=== PATIENT | male | born 1945 | race Caucasian/White ===

== ENCOUNTER 2017-09-12 04:04 | Observation (INO) ==
[2017-09-12] MEDS ORDERED: 0.9 % Sodium Chloride 1,000 ML IVC ONE (04:47)
[2017-09-12] MEDS ORDERED: Ipratropium/Albuterol Neb 3 ML IH ONE (04:51)
[2017-09-12] MEDS ORDERED: methylPREDNISolone 125 MG/2 ML VIAL IVP ONE (04:53)
--- NOTE | 2017-09-12 04:55 | Emergency Department Note ---
Disposition Clinical Impression: Influenza A, Hypokalemia COPD (chronic obstructive pulmonary disease) Qualifiers: COPD type: unspecified COPD Qualified Code(s): J44.9 - Chronic obstructive pulmonary disease, unspecified Disposition: Admitted As Inpatient Condition: Fair Time of Disposition: 06:02 General Adult HPI - General Chief complaint: ED Shortness of Breath/Dyspnea Stated complaint: cough,fever Time Seen by Provider: 09/12/17 04:12 Source: patient, family Mode of arrival: ambulatory Limitations: no limitations Nursing Notes Reviewed: Yes Vital Signs Reviewed: Yes - History of Present Illness HPI Narrative: 71-year-old male is here COPD, ACS presents for evaluation of cough and fever. Patient also associated chest pain related to cough. Patient states that mom says approximately a week ago. Notes. Productive cough. Also noticed to have subjective fevers. Reports chest pain related to the cough. Patient denies any specific dyspnea. Patient states that he cannot sleep. Patient denies any muscle aches. Patient denies any nausea or vomiting. Reports that he has been not been using his albuterol. Pain Scale: 10 - Related Data Home Medications Medication Instructions Recorded Confirmed Albuterol Inhaler 09/24/15 09/24/15 Aspirin 09/24/15 Diltiazem 09/24/15 Ferrous Sulfate 09/24/15 Imdur 09/24/15 Metformin 09/24/15 Plavix 09/24/15 Proair Respiclick 09/24/15 Ranitidine 09/24/15 TraMADol 09/24/15 Vytorin 10-10 mg Tablet 09/24/15 Xanax 09/24/15 Previous Rx's Medication Instructions Recorded Sulfamethoxazole/Trimeth DS 1 each PO BID #20 tablet 09/24/15 [Bactrim DS] Cyclobenzaprine [Flexeril] 10 mg PO TID PRN #9 tablet 07/20/16 Hydrocodone/Acetaminophen [[place]ord 1 tab PO Q6H PRN #8 tab 07/20/16 5-325 Tablet] Cyclobenzaprine HCl 10 mg PO TID #15 tablet 08/30/16 predniSONE [PredniSONE] 10 mg PO DAILY 5 Days tablet 08/30/16 Azithromycin [Azithromycin 6-Tab 250 mg PO PER PKG DI #6 tab 02/18/17 Pack] Benzonatate [Tessalon] 200 mg PO TID PRN #30 capsule 02/18/17 Guaifenesin [Mucinex] 600 mg PO BID #20 tab.er.12h 02/18/17 Loratadine [Allergy Relief] 10 mg PO DAILY #30 tablet 02/18/17 Allergies Allergy/AdvReac Type Severity Reaction Status Date / Time cephalexin AdvReac Rash Verified 09/12/17 04:05 ketorolac AdvReac Rash Verified 09/12/17 04:05 lovastatin AdvReac Rash Verified 09/12/17 04:05 niacin AdvReac Rash Verified 09/12/17 04:05 Penicillins AdvReac Rash Verified 09/12/17 04:05 prednisone AdvReac Rash Verified 09/12/17 04:05 avacor AdvReac Rash Uncoded 09/12/17 04:05 All systems ED: reviewed and negative except as stated. Constitutional: Reports: as per HPI, fever Eyes: Reports: as per HPI ENT ED: Reports: as per HPI Cardiovascular: Reports: as per HPI, chest pain Respiratory: Reports: as per HPI, cough, sputum production Gastrointestinal: Reports: as per HPI Genitourinary: Reports: as per HPI Past Medical History - Past Medical History Medical history: Reports: COPD, coronary artery disease, diabetes, hypertension Surgical history: Reports: coronary bypass (CABG), orthopedic, other Psychiatric history: Reports: anxiety - Social History Smoking Status: Never smoker Smokeless Tobacco Status: No Alcohol use: Reports: none Drug use: Reports: none Physical Exam - General Limitations: no limitations General appearance: alert, in no apparent distress - Head Head exam: atraumatic, normocephalic, normal inspection - Eye Eye exam: Present: normal appearance, PERRL, EOMI - ENT ENT exam: normal exam, normal oropharynx, mucous membranes moist - Neck Neck exam: Present: normal inspection - Chest Chest inspection: Present: normal inspection, symmetric chest wall rise - Respiratory Respiratory exam: Present: prolonged expiratory phase, other (diffusely decreased breath sounds) - Cardiovascular Cardiovascular exam: Present: regular rate, normal rhythm - Abdominal Exam Abdominal exam: Present: soft, Non-Tender - Extremities Exam Extremities exam: Present: normal inspection. Absent: pedal edema - Back Exam Back exam: Present: normal inspection - Neurological Exam Neurological exam: Present: alert, oriented X3 - Skin Skin exam: Present: warm, dry, intact, normal color Course Course Narrative: Patient seen and examined. Patient appears uncomfortable. Patient had a chest x-ray. Patient also had EKG. Given the patient's age and comorbidities. Patient would benefit from albuterol as well as steroids. Patient will also get basic lab work IV fluid hydration and symptomatic treatment. Disposition pending. - Reevaluation(s) Reevaluation #1: Patient seen and examined. Patient does have scattered wheezes throughout. Patient continues to have difficulty breathing. Patient's flu was positive. Patient was given Tamiflu given his age and comorbidities. Patient is also given doxycycline concerns for secondary bacterial infection. Time: 05:57 Vital Signs Temperature 99.4 F 09/12/17 04:05 Pulse Rate 94 09/12/17 04:05 Respiratory Rate 24 09/12/17 04:05 Blood Pressure 119/67 09/12/17 04:05 O2 Sat by Pulse Oximetry 95 09/12/17 04:05 Temperature 98 F 09/12/17 06:44 Pulse Rate 78 09/12/17 06:44 Respiratory Rate 18 09/12/17 06:44 Blood Pressure 120/68 09/12/17 06:44 O2 Sat by Pulse Oximetry 94 09/12/17 06:44 Oxygen Delivery Oxygen Delivery Room Air Medical Decision Making - [facility] Narrative Medical decision making narrative: 71 year old male presents for evaluation of a week's worth of cough and fever. Patient appeared unwell on initial exam. Patient does have a history of COPD. Patient had scattered wheezes throughout. Patient had slightly increased work of breathing. Patient was given steroids as well as aerosols. Patient had moderate response. Patient had influenza swab which was positive. Patient was treated with Tamiflu given his age and comorbidities. Patient was also given IV fluids and Tylenol. Patient labs showed hypokalemia and was supplemented with oral potassium. Patient's EKG shows no acute changes. Patient's chest x- ray shows cardiomegaly with mild congestion. Patient's symptoms likely secondary to influenza. Given the duration of symptoms and the patient's comorbidity a secondary bacterial infection cannot be excluded. Patient was placed on doxycycline. Patient would benefit from inpatient admission for observation as well as continued respiratory support and monitoring. Patient would also benefit for resolution of hypokalemia. Patient was agreeable with plan of care. - Lab Data Lab results reviewed: Yes I reviewed the patient's lab results. Result diagrams: 09/12/17 05:00 09/12/17 05:00 Lab Results 09/12/17 09/12/17 09/12/17 Range/Units 05:00 05:00 05:00 WBC 8.6 (4.3-11.1) K/mcL RBC 4.19 (4.19-5.50) M/mcL Hgb 11.7 L (12.9-16.9) g/dL Hct 33.7 L (37.5-50.1) % MCV 80.4 L (83.0-100.0) fL MCH 27.9 L (28.0-33.3) pg MCHC 34.7 (31.6-35.5) g/dL RDW 12.7 (11.5-14.5) % Plt Count 208 (140-400) K/mcL MPV 10.7 (9.4-12.4) fL Immature Gran % 0.3 (0-4) % Seg Neutrophils % 72.7 % Lymphocytes % 12.3 % Monocytes % 13.0 % Eosinophils % 1.2 % Basophils % 0.5 % Neutrophils # 6.3 (1.6-8.9) K/mcL Lymphocytes # 1.1 (0.6-4.6) K/mcL Monocytes # 1.1 (0.0-1.3) K/mcL Eosinophils # 0.1 (0.0-0.6) K/mcL Basophils # 0.0 (0.0-0.2) K/mcL Sodium 135 L (136-145) mEq/L Potassium 2.9 L (3.5-5.1) mEq/L Chloride 103 (98-107) mEq/L Carbon Dioxide 25 (23-29) mEq/L BUN 7 L (8-23) mg/dL Creatinine 0.77 (0.70-1.30) mg/dL Est GFR ( Amer) > 60 (> 60) Est GFR (Non-Af Amer) > 60 (> 60) BUN/Creatinine Ratio 9 (6-26) Glucose 120 H (70-105) mg/dL Calculated Osmolality 279 L (280-300) Calcium 8.6 (8.6-10.3) mg/dL Magnesium 1.5 L (1.6-2.6) mg/dL Troponin I < 0.03 (< 0.04) ng/mL - Radiology Data Radiology results reviewed: Yes I reviewed the patient's radiology results. Chest X-Ray 09/12/17 04:18 IMPRESSION: Cardiomegaly with mild pulmonary vascular congestion. D/ / Michael Lewis MD / Michael Lewis MD Interpreting Provider: Michael Lewis MD - EKG Data EKG #1 EKG attestation: Yes I reviewed and interpreted this EKG. EKG shows normal: sinus rhythm Rate: normal Rhythm: NSR [place]/QRS: normal Q waves: III Interpretation: no acute changes S.B.A.R. - S.B.A.R. Situation: Demographics Background: Presenting Complaint Assessment: Vital Signs, Course and respsone to treatment, Patient/Family Expectation Recommendation: Barrier(s) to disposition, Recommendation based on pending studies, treatments, or consults S.B.A.R. Report Given to: Dr. Anahy UlloaBRaudelASusana Repor Time: 06:01 Attestation Statement - Attestation Attestation: I, Ramón Ashley MD, personally evaluated this patient and discussed their management with the resident physician. I reviewed the resident's note and agree with the documented findings, medical decision making, and plan of care. 71-year-old male with history of COPD presents to the emergency department with a complaint of one-week history of fever cough and congestion with increased shortness of breath. On examination patient's well-developed well-nourished elderly male in mild respiratory distress. He is alert and oriented. There is no cyanosis. He is mildly diaphoretic. He is very hot to touch. Breath sounds are decreased bilaterally with diffuse bilateral expiratory wheezes. Heart regular with a mild tachycardia. Abdomen is soft and nontender with normal bowel sounds. Labs reviewed. Positive influenza type A. Chest x-ray shows cardiomegaly with mild pulmonary vascular congestion. The hospitalist, Dr. Higginbotham, was consulted and accepted admission of the patient.
[2017-09-12 05:14] LABS: Basophils % 0.5 %; Eosinophils # 0.1 K/mcL (0.0-0.6); Eosinophils % 1.2 %; Hematocrit 33.7 % (37.5-50.1); Hemoglobin 11.7 g/dL (12.9-16.9); Immature Granulocytes % 0.3 % (0-4); Lymphocytes # 1.1 K/mcL (0.6-4.6); Lymphocytes % 12.3 %; Mean Corpuscular HGB Conc 34.7 g/dL (31.6-35.5); Mean Corpuscular Hemoglobin 27.9 pg (28.0-33.3); Mean Corpuscular Volume 80.4 fL (83.0-100.0); Mean Platelet Volume 10.7 fL (9.4-12.4); Monocytes # 1.1 K/mcL (0.0-1.3); Neutrophils # 6.3 K/mcL (1.6-8.9); Platelet Count 208 K/mcL (140-400); Red Blood Count 4.19 M/mcL (4.19-5.50); Red Cell Distribution Width 12.7 % (11.5-14.5); Segmented Neutrophils % 72.7 %
[2017-09-12 05:27] LABS: BUN/Creatinine Ratio 9 (6-26); Blood Urea Nitrogen 7 mg/dL (8-23); Calcium 8.6 mg/dL (8.6-10.3); Carbon Dioxide 25 mEq/L (23-29); Chloride 103 mEq/L (98-107); Glucose 120 mg/dL (70-105); Osmolality,Calculated 279 (280-300); Potassium 2.9 mEq/L (3.5-5.1); Sodium 135 mEq/L (136-145); eGFR For African Americans > 60 (> 60); eGFR For Non-African Americans > 60 (> 60)
[2017-09-12] MEDS ORDERED: Doxycycline 100 MG in 0.9 % Sodium Chloride Mini Bag 100 ML IVPB ONE (05:55)
[2017-09-12 06:20] LABS: Magnesium 1.5 mg/dL (1.6-2.6)
[2017-09-12] MEDS ORDERED: Naloxone 0.4 MG/ML INJ IVP PRN (08:44)
[2017-09-12] MEDS ORDERED: Acetaminophen 325 MG TABLET PO PRN (08:44)
[2017-09-12] MEDS ORDERED: Ondansetron 4 MG/2 ML VIAL IVP PRN (08:44)
[2017-09-12] MEDS ORDERED: Albuterol 2.5 MG/3 ML NEBULIZER IH PRN (08:44)
[2017-09-12] MEDS ORDERED: *HR* Morphine 2 MG/ML SYRINGE IVP PRN (08:44)
[2017-09-12] MEDS ORDERED: Nitroglycerin Spray 4.9 GM BOTTLE TL PRN (08:52)
[2017-09-12] MEDS: Levofloxacin 500 MG/100 ML 500 MG/100 ML BAG IVPB SCH (09:30)
[2017-09-12] MEDS: 0.9 % Sodium Chloride w KCl 20 MEQ/1,000 ML MLS IVC SCH (09:30)
[2017-09-12] MEDS: Famotidine 20 MG TABLET PO SCH ×2 (09:31→21:12)
[2017-09-12] MEDS: Fluticasone Propionate Nasal 50 MCG/SPRAY BOTTLE NS SCH (09:40)
--- NOTE | 2017-09-12 10:14 | Internal Med History&Physical ---
Date of Encounter: 09/12/17 Time of Encounter: 08:15 Assessment and Plan (1) Influenza A Current visit: Yes Status: Acute 1. Supportive measures with IVF, nausea control, fever control, correct electrolytes. 2. Start Tamiflu. 3. Respiratory droplet precautions. (2) COPD exacerbation Current visit: Yes Status: Acute 1. Will treat with IV steroids, scheduled aerosols, oxygen as necessary. 2. Clinically, I worry about evolving pneumonia. 3. Blood cultures ordered. 4. Will start empiric IV Levaquin. (3) CAD (coronary artery disease) Current visit: Yes Status: Chronic 1. Continue home meds as appropriate. 2. Chest pain likely pleuritic form COPD and/or pneumonia. 3. Will cycle troponins, EKG's, and order ECHO given the murmur on exam ( concern for aortic stenosis). Qualifiers: Coronary Disease-Associated Artery/Lesion type: [place] artery [place] vs. transplanted heart: saxman heart Associated angina: without angina Qualified Code(s): I25.10 - Atherosclerotic heart disease of sax[place] coronary artery without angina pectoris (4) Hypokalemia Current visit: Yes Status: Acute 1. Will correct with oral potassium and follow chemistries. 2. Hydrate with IVF 0.9 NS with 20 meQ KCL/L. (5) DVT prophylaxis Current visit: Yes Status: Acute 1. Heparin SQ. Internal Medicine - H&P: HPI Chief complaint: fevers; cough; chills; SOB; chest pain Admitted From: Emergency Dept Plans for Post Hospital Care: Home History of present illness: Mr. Ruby is a 71 year old male who presents to the ER with complaints of fevers , chills, harsh cough, wheezing, shortness of breath, pleuritic-type chest pain , and body aches. He was exposed to his daughter and granddaughter, both of whom have had influenza. His symptoms and fevers worsened to the point where he cannot tolerate them. He also notes his COPD has been worsening. This prompted him to come to ER when he was confirmed to have influenza. Chest x- ray was negative for pneumonia. However, clinically, it was felt that he might have early pneumonia. Upon my assessment of the patient, he appears to be acutely ill but nontoxic. He is having some mild respiratory distress secondary to his COPD flareup. He confirms above symptoms and states he has been "drenching in sweat the last 2 days". His chest pain is associated with coughing and not typical of his coronary artery disease. However, he does have angina, which flares up occasionally. He's had some nausea but no vomiting or diarrhea. He has had diffuse myalgias and body aches as well. Past Med Surg Social Fam HX - Past Medical History Attestation: Yes The following information was validated with the patient. Source: patient, old records reviewed Medical history: COPD, coronary artery disease, diabetes, hypertension Psychiatric history: anxiety - Past Surgical History Surgical History: coronary bypass (CABG), orthopedic, other - Social History Smoking Status: Never smoker Packs per day: 1.5 Smokeless Tobacco Status: No Alcohol use: none Drug use: none Current living situation: Home, With Family Activity Level: Independent ambulation Recent Out of Country Travel Within the Last 8 Weeks: No - Family History Mother Living Status: Hx Family Respiratory Disorders: No Father Living Status: Hx Family Respiratory Disorders: No Internal Medicine - H&P: Meds Albuterol Neb [Proventil Neb] 2.5 mg IH TID PRN 09/12/17 [History] Albuterol Sulfate [Proair Hfa] 2 puff IH Q4H PRN 09/12/17 [History] Aspirin Enteric Coated [Aspirin EC] 81 mg PO DAILY 09/12/17 [History] Clopidogrel [Plavix] 75 mg PO DAILY 09/12/17 [History] Diltiazem HCl [Diltiazem ER] 240 mg PO DAILY 09/12/17 [History] Ferrous Sulfate 325 mg PO DAILY 09/12/17 [History] Fluticasone Propionate Nasal [Flonase] 50 mcg NS DAILY 09/12/17 [History] Fluticasone/Salmeterol [Advair 250-50 Diskus] 1 each IH BID 09/12/17 [History] Isosorbide MONOnitrate [Isosorbide Mononitrate ER] 120 mg PO DAILY 09/12/17 [ History] Metformin HCl [Glucophage Xr] 750 mg PO BID 09/12/17 [History] Nitroglycerin [Nitrolingual] 1 spray TL AD PRN 09/12/17 [History] Ranitidine HCl [Zantac] 150 mg PO BID 09/12/17 [History] Tamsulosin [Flomax] 0.4 mg PO DAILY 09/12/17 [History] 3 Allergy/AdvReac Type Severity Reaction Status Date / Time cephalexin AdvReac Rash Verified 09/12/17 04:05 ketorolac AdvReac Rash Verified 09/12/17 04:05 lovastatin AdvReac Rash Verified 09/12/17 04:05 niacin AdvReac Rash Verified 09/12/17 04:05 Penicillins AdvReac Rash Verified 09/12/17 04:05 prednisone AdvReac Rash Verified 09/12/17 04:05 avacor AdvReac Rash Uncoded 09/12/17 04:05 - Constitutional Constitutional: chills, excessive sweating, fever(s), night sweats - EENT Eyes: no blurry vision, no change in vision Ears: no ear pain, no tinnitus Nose, mouth and throat: nasal congestion, sore throat, no nasal discharge, no sinus pressure - Cardiovascular Cardiovascular ROS IM: chest pain (plueritic -- coughing), dyspnea, no palpitations, no syncope - Respiratory Respiratory: cough, dyspnea, wheezing, chest congestion, change in phlegm color , pain with cough, no hemoptysis - Gastrointestinal Gastrointestinal: nausea, no abdominal pain, no diarrhea, no hematemesis, no hematochezia, no melena, no vomiting - Genitourinary Genitourinary ROS male: no dysuria, no flank pain, no hematuria - Musculoskeletal Musculoskeletal ROS IM: back pain, muscle cramps, myalgias, no arthralgias - Integumentary Integumentary IM: no rash, no jaundice - Neurological Neurological ROS: headache(s), no dizziness, no focal weakness, no frequent falls - Psychiatric Psychiatric: no anxiety, no depression - Endocrine Endocrine IM: fatigue, no polydipsia, no polyuria - Allergic/Immunologic Allergic/Immunologic: wheezing, no GI upset with certain foods - Constitutional Vitals: Temp Pulse Resp BP Pulse Ox 98 F 78 18 120/68 94 09/12/17 06:44 09/12/17 06:44 09/12/17 06:44 09/12/17 06:44 09/12/17 06:44 General appearance: Present: cooperative, mild distress, A&O X 3, pleasant, answers questions appropriately Exam: ill appearing but non-toxic - Head Head exam: Present: atraumatic, normal inspection - Eye Eye exam: Present: EOMI, PERRL. Absent: scleral icterus Pupils: Present: normal accommodation - ENT ENT exam: Present: mucous membranes dry, normal exam, normal oropharynx - Neck Neck exam general surgery: Present: full ROM, supple. Absent: lymphadenopathy, tenderness, nuchal rigidity - Respiratory Respiratory exam: Present: rales (scatterd thorughout with rhonchi), respiratory distress (mild), rhonchi, wheezes. Absent: chest wall tenderness, CTAB, stridor - Cardiovascular Cardiovascular exam: Present: RRR, +S1, +S2, systolic murmur (grade 3 early systolic). Absent: diastolic murmur - GI/Abdominal GI/Abdominal exam: Present: normal bowel sounds, soft. Absent: hepatomegaly, splenomegaly, tenderness - Extremities Exam Extremities exam: Present: full ROM, normal capillary refill, warm, radial pulses palpable and symmetrical. Absent: calf tenderness, joint swelling, pedal edema - Back Exam Back exam: Present: normal inspection. Absent: CVA tenderness (L), CVA tenderness (R) - Neurological Exam Neurological exam: Present: alert, CN II-XII intact, oriented X3, no focal deficits - Psychiatric Psychiatric exam: Present: normal affect, normal mood - Skin Skin exam: Present: dry, warm. Absent: rash Internal Med - H&P Results - Labs CBC & Chem 7: 09/12/17 05:00 09/12/17 05:00 - EKG Data -: EKG Interpreted by Myself EKG shows normal: sinus rhythm - EKG Data Prior EKG available for review: no EKG comments: 09/12/17 10:20 NSR; borderline LVH; no acute changes - Diagnostic Studies Chest x-ray Status: image reviewed by me (negative for infiltrate; vascular congestion but poor qulaity film due to end expiratory film )
[2017-09-12] MEDS ORDERED: D5% in Water 1,000 ML IVC PRN (10:23)
[2017-09-12] MEDS ORDERED: Dextrose Gel 15 GM/37.5 ML TUBE PO PRN ×2 (10:23)
[2017-09-12] MEDS ORDERED: *HR* Dextrose 50 % in Water (Syg) 50 ML SYRINGE IVP PRN (10:23)
[2017-09-12] MEDS: Diltiazem CD (24hr) 240 MG CAPSULE PO SCH (10:29)
[2017-09-12] MEDS: Isosorbide MONOnitrate (24 HR) 60 MG TAB.ER.24H PO SCH (10:29)
[2017-09-12] MEDS: Aspirin Enteric Coated 81 MG Tablet PO SCH (10:29)
[2017-09-12] MEDS: Ipratropium/Albuterol Neb 3 ML IH SCH ×3 (11:02→21:49)
[2017-09-12] MEDS: Budesonide/Formoterol 80/4.5 MDI IH SCH ×2 (11:02→21:49)
[2017-09-12] MEDS: Insulin LISPRO 300 UNITS/3 ML VIAL SQ SCH ×2 (12:33→18:46)
[2017-09-12 14:43] LABS: Hemoglobin A1C 5.6 %
[2017-09-12] MEDS: methylPREDNISolone 125 MG/2 ML VIAL IVP SCH ×2 (18:44→23:21)
[2017-09-12] MEDS: *HR* Heparin 5,000 UNIT/ML VIAL SQ SCH ×2 (18:45→21:12)
[2017-09-13] MEDS: 0.9 % Sodium Chloride w KCl 20 MEQ/1,000 ML MLS IVC SCH (02:18)
[2017-09-13] MEDS: Ipratropium/Albuterol Neb 3 ML IH SCH ×4 (03:34→22:23)
[2017-09-13] MEDS: *HR* Heparin 5,000 UNIT/ML VIAL SQ SCH ×3 (05:12→22:49)
[2017-09-13] MEDS: methylPREDNISolone 125 MG/2 ML VIAL IVP SCH ×2 (07:33→17:57)
[2017-09-13] MEDS: Insulin LISPRO 300 UNITS/3 ML VIAL SQ SCH ×3 (07:36→17:58)
[2017-09-13 08:06] LABS: Alanine Aminotransferase 13 Units/L (7-52); Albumin 3.7 g/dL (3.5-5.7); Albumin/Globulin Ratio 1.1 (1.1-2.2); Alkaline Phosphatase 91 Units/L (34-104); Aspartate Amino Transferase 15 Units/L (13-39); BUN/Creatinine Ratio 19 (6-26); Bilirubin,Total 0.2 mg/dL (0.3-1.0); Blood Urea Nitrogen 14 mg/dL (8-23); Calcium 9.2 mg/dL (8.6-10.3); Carbon Dioxide 19 mEq/L (23-29); Chloride 110 mEq/L (98-107); Globulin 3.3 g/dL (2.4-3.5); Glucose 216 mg/dL (70-105); Magnesium 2.1 mg/dL (1.6-2.6); Osmolality,Calculated 299 (280-300); Potassium 3.3 mEq/L (3.5-5.1); Sodium 141 mEq/L (136-145); eGFR For African Americans > 60 (> 60); eGFR For Non-African Americans > 60 (> 60)
[2017-09-13] MEDS: Levofloxacin 500 MG/100 ML 500 MG/100 ML BAG IVPB SCH (08:09)
[2017-09-13] MEDS: Famotidine 20 MG TABLET PO SCH ×2 (08:10→22:49)
[2017-09-13] MEDS: Isosorbide MONOnitrate (24 HR) 60 MG TAB.ER.24H PO SCH (08:10)
[2017-09-13] MEDS: Diltiazem CD (24hr) 240 MG CAPSULE PO SCH (08:10)
[2017-09-13] MEDS: Aspirin Enteric Coated 81 MG Tablet PO SCH (08:10)
[2017-09-13] MEDS: Fluticasone Propionate Nasal 50 MCG/SPRAY BOTTLE NS SCH (08:11)
[2017-09-13] MEDS: Budesonide/Formoterol 80/4.5 MDI IH SCH ×2 (10:12→22:23)
--- NOTE | 2017-09-13 18:45 | Electrocardiograph Report ---
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
--- NOTE | 2017-09-13 19:00 | Internal Med Progress Note ---
Date of Encounter: 09/13/17 Time of Encounter: 11:00 - Assessment and plan (1) COPD (chronic obstructive pulmonary disease) Current Visit: Yes Status: Acute Assessment and plan: Acute COPD exacerbation. IV Levaquin has been started. Patient also has flu A. We will treat with IV steroids, IV antibiotics, scheduled aerosols, oxygen as needed to maintain sats greater than 92%. Patient reports frequent, disruptive cough that is nonproductive. Have ordered Mucinex. Continue telemetry and above plan. Qualifiers: COPD type: unspecified COPD Qualified Code(s): J44.9 - Chronic obstructive pulmonary disease, unspecified (2) Influenza A Current Visit: Yes Status: Acute Assessment and plan: Positive flu flu A. Barrie has been started. Patient is respiratory droplet precautions. Continue IV fluids, antiemetics, and Tylenol or Motrin for fever control. Monitor electrolytes and labs vital signs. (3) Hypokalemia Current Visit: Yes Status: Acute Assessment and plan: Resolving. We will continue to monitor. Conversely, magnesium has resolved, as well. (4) CAD (coronary artery disease) Current Visit: Yes Status: Chronic Assessment and plan: Patient denies any chest pain. Continue home medications. Patient had echocardiogram today that showed an LVEF of 55% with a atypical septal motion consistent with postoperative status. Moderate LV DD, aortic valve appeared calcified with moderate aortic stenosis. Mild MR. 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 Qualifiers: Coronary Disease-Associated Artery/Lesion type: [place] artery [place] vs. transplanted heart: [place]ai heart Associated angina: without angina Qualified Code(s): I25.10 - Atherosclerotic heart disease of [place] coronary artery without angina pectoris (5) DVT prophylaxis Current Visit: Yes Status: Acute Assessment and plan: Heparin subcutaneous. - Time Spent With Patient less than 15 minutes - Subjective Interval history: She was seen and assessed at bedside at 11 AM. He is very hard of hearing. He denies abdominal pain, nausea or vomiting. He denies dizziness or headache. He states that he does not feel well at all. He was agreeable to staying another day. - Constitutional Vitals: Temp Pulse Resp BP Pulse Ox 98 F 87 16 134/72 95 09/13/17 15:05 09/13/17 15:05 09/13/17 15:21 09/13/17 15:21 09/13/17 15:21 General appearance: Present: cooperative, mild distress, A&O X 3, pleasant, no acute distress, answers questions appropriately - Head Head exam: Present: atraumatic, normal inspection, normocephalic - Eye Eye exam: Present: conjuntiva pink, sclera anicteric - Neck Neck exam general surgery: Present: supple, trachea midline. Absent: lymphadenopathy, tenderness - Respiratory Respiratory exam: Present: CTAB. Absent: accessory muscle use, rales, rhonchi, wheezes - Cardiovascular Cardiovascular exam: Present: RRR, +S1, +S2. Absent: diastolic murmur, gallop, rubs, systolic murmur - GI/Abdominal GI/Abdominal exam: Present: normal bowel sounds, soft. Absent: distended, hepatomegaly, tenderness - Extremities Exam Extremities exam: Present: warm, radial pulses palpable and symmetrical. Absent : calf tenderness, cyanotic, pedal edema - Neurological Exam Neurological exam: Present: alert, oriented X3, no focal deficits. Absent: facial droop, speech deficit - Skin Skin exam: Present: dry, intact, normal color, warm. Absent: rash Internal Medicine: Result - Labs CBC & Chem 7: 09/12/17 05:00 09/13/17 07:00 Labs: BMP 09/13/17 07:00 Sodium 141 Potassium 3.3 L Chloride 110 H Carbon Dioxide 19 L BUN 14 Creatinine 0.72 Glucose 216 H Calcium 9.2 Liver Function 09/13/17 Range/Units 07:00 Total Bilirubin 0.2 L (0.3-1.0) mg/dL AST 15 (13-39) Units/L ALT 13 (7-52) Units/L Alkaline Phosphatase 91 (34-104) Units/L Albumin 3.7 (3.5-5.7) g/dL - Impressions Impressions Echocardiogram 09/12/17 10:07 Impressions: LVEF 55%. Normal LV chamber size, wall thickness and function. Atypical septal motion c/w a postoperative septum. Moderate left ventricular diastolic dysfunction. Normal right ventricular structure and function. Aortic valve not well visualized in short axis, but appeared calcified in other views. Moderate aortic stenosis by Doppler. Mean gradient 30 mmHg. Peak velocity 3.64 m/s. Mild mitral regurgitation. No evidence of pulmonary hypertension. Left Ventricular Wall Motion: Rest Echo Findings All wall segments showed normal motion. Findings: Study Quality * Technically adequate exam. ECG Findings * Normal sinus rhythm. Left Ventricle * LVEF 55%. * Normal LV chamber size, wall thickness and function. * Atypical septal motion c/w a postoperative septum. * Moderate left ventricular diastolic dysfunction. Right Ventricle * Normal right ventricular structure and function. Left Atrium * Moderately dilated left atrium. Right Atrium * Normal right atrial size. Interatrial Septum * No evidence of PFO with agitated saline contrast. Aortic Valve * Aortic valve not well visualized. In some views, it appeared to be calcified. * No aortic regurgitation. * Moderate aortic stenosis. Mean gradient 30 mmHg. Peak velocity 3.64 m/s. Mitral Valve * Normal mitral valve structure. * Mild mitral regurgitation. * No mitral stenosis. Tricuspid Valve * Normal tricuspid valve structure and function. * Trace tricuspid regurgitation. * No evidence of pulmonary hypertension. Pulmonic Valve * Normal pulmonic valve structure and function. * No pulmonic regurgitation. Aorta * Normally sized aortic root. Pericardium * The pericardium appears normal. IVC * Normal IVC dimensions and inspiratory collapse. Pulmonary Artery * Normal visualized portions of the main pulmonary artery. Consult Discharge Plan - Plan Referrals: Akbar Diallo MD [Primary Care Provider] -
[2017-09-14] MEDS: methylPREDNISolone 125 MG/2 ML VIAL IVP SCH ×4 (00:52→23:24)
[2017-09-14] MEDS: Ipratropium/Albuterol Neb 3 ML IH SCH ×4 (04:35→21:27)
[2017-09-14] MEDS: *HR* Heparin 5,000 UNIT/ML VIAL SQ SCH ×3 (05:53→20:26)
[2017-09-14] MEDS: Isosorbide MONOnitrate (24 HR) 60 MG TAB.ER.24H PO SCH (08:16)
[2017-09-14] MEDS: Diltiazem CD (24hr) 240 MG CAPSULE PO SCH (08:16)
[2017-09-14] MEDS: Levofloxacin 500 MG/100 ML 500 MG/100 ML BAG IVPB SCH (08:24)
[2017-09-14] MEDS: Insulin LISPRO 300 UNITS/3 ML VIAL SQ SCH ×3 (08:24→17:36)
[2017-09-14] MEDS: Aspirin Enteric Coated 81 MG Tablet PO SCH (08:25)
[2017-09-14] MEDS: Famotidine 20 MG TABLET PO SCH ×2 (08:25→20:27)
[2017-09-14] MEDS: Fluticasone Propionate Nasal 50 MCG/SPRAY BOTTLE NS SCH (08:26)
[2017-09-14] MEDS ORDERED: Benzonatate 100 MG CAPSULE PO PRN (10:26)
[2017-09-14] MEDS ORDERED: Promethazine/Codeine Oral Sryup 5 ML UDC PO ONE ×2 (10:26→20:00)
[2017-09-14] MEDS: Budesonide/Formoterol 80/4.5 MDI IH SCH ×2 (11:24→21:27)
--- NOTE | 2017-09-14 16:46 | Internal Med Progress Note ---
Date of Encounter: 09/14/17 Time of Encounter: 08:25 - Assessment and plan (1) COPD (chronic obstructive pulmonary disease) Current Visit: Yes Status: Acute Assessment and plan: Acute COPD exacerbation. IV Levaquin has been started. Patient also has flu A. We will treat with IV steroids, IV antibiotics, scheduled aerosols, oxygen as needed to maintain sats greater than 92%. Patient reports frequent, disruptive cough that is nonproductive. Have ordered Mucinex and Phenergan with Codeine for cough x 2 . Continue telemetry and above plan. Qualifiers: COPD type: unspecified COPD Qualified Code(s): J44.9 - Chronic obstructive pulmonary disease, unspecified (2) Influenza A Current Visit: Yes Status: Acute Assessment and plan: Positive flu A. Tamiflu has been started. Patient is in respiratory droplet precautions. Continue IV fluids, antiemetics, and Tylenol or Motrin for fever control. Monitor electrolytes and labs vital signs. 9 doses today. (3) Hypokalemia Current Visit: Yes Status: Acute Assessment and plan: Resolving. We will continue to monitor. Conversely, magnesium has resolved, as well. (4) CAD (coronary artery disease) Current Visit: Yes Status: Chronic Assessment and plan: Patient denies any chest pain. Continue home medications. Patient had echocardiogram today that showed an LVEF of 55% with a atypical septal motion consistent with postoperative status. Moderate LV DD, aortic valve appeared calcified with moderate aortic stenosis. Mild MR. Patient will follow up with technician chemical cleaning as scheduled. Qualifiers: Coronary Disease-Associated Artery/Lesion type: [place] artery [place] vs. transplanted heart: [place] heart Associated angina: without angina Qualified Code(s): I25.10 - Atherosclerotic heart disease of [place] coronary artery without angina pectoris (5) DVT prophylaxis Current Visit: Yes Status: Acute Assessment and plan: Heparin subcutaneous BID - Subjective Interval history: She was seen and assessed at bedside at 0825. He is very hard of hearing. He denies abdominal pain, nausea or vomiting. He denies dizziness or headache. He states that he does not feel well at all and complains of constant, annoying cough. He states that he is not any better, however, becomes a little agitated when I suggested he stay another day since he is not any better. Patient was given Phenergan with codeine cough syrup and we will continue current treatment reevaluate tomorrow. - Constitutional Vitals: Temp Pulse Resp BP Pulse Ox 97.7 F 78 17 110/59 96 09/14/17 11:16 09/14/17 11:16 09/14/17 11:16 09/14/17 11:16 09/14/17 11:16 General appearance: Present: cooperative, mild distress, A&O X 3, no acute distress, answers questions appropriately. Absent: pleasant - Head Head exam: Present: atraumatic, normal inspection, normocephalic - Eye Eye exam: Present: normal appearance, conjuntiva pink, sclera anicteric - Neck Neck exam general surgery: Present: normal inspection, supple, trachea midline. Absent: lymphadenopathy, tenderness - Respiratory Respiratory exam: Present: CTAB. Absent: accessory muscle use, rales, rhonchi, wheezes - Cardiovascular Cardiovascular exam: Present: RRR, +S1, +S2. Absent: diastolic murmur, gallop, rubs, systolic murmur - GI/Abdominal GI/Abdominal exam: Present: normal bowel sounds, soft, no peritoneal signs. Absent: distended, hepatomegaly, tenderness - Extremities Exam Extremities exam: Present: normal capillary refill, warm, radial pulses palpable and symmetrical. Absent: calf tenderness, cyanotic, pedal edema - Neurological Exam Neurological exam: Present: alert, oriented X3, no focal deficits. Absent: facial droop, speech deficit - Skin Skin exam: Present: dry, intact, normal color, warm. Absent: rash Internal Medicine: Result - Labs CBC & Chem 7: 09/12/17 05:00 09/13/17 07:00 Consult Discharge Plan - Plan Referrals: Akbar Diallo MD [Primary Care Provider] -
[2017-09-15] MEDS: Ipratropium/Albuterol Neb 3 ML IH SCH ×2 (03:58→10:58)
[2017-09-15 07:48] VITALS: BP 140/64
[2017-09-15] MEDS: *HR* Heparin 5,000 UNIT/ML VIAL SQ SCH (09:13)
[2017-09-15] MEDS: Famotidine 20 MG TABLET PO SCH (09:23)
[2017-09-15] MEDS: Isosorbide MONOnitrate (24 HR) 60 MG TAB.ER.24H PO SCH (09:23)
[2017-09-15] MEDS: Aspirin Enteric Coated 81 MG Tablet PO SCH (09:24)
[2017-09-15] MEDS: methylPREDNISolone 125 MG/2 ML VIAL IVP SCH (09:24)
[2017-09-15] MEDS: Levofloxacin 500 MG/100 ML 500 MG/100 ML BAG IVPB SCH (09:24)
[2017-09-15] MEDS: Diltiazem CD (24hr) 240 MG CAPSULE PO SCH (09:24)
[2017-09-15] MEDS: Fluticasone Propionate Nasal 50 MCG/SPRAY BOTTLE NS SCH (09:25)
[2017-09-15] MEDS: Insulin LISPRO 300 UNITS/3 ML VIAL SQ SCH (09:25)
--- NOTE | 2017-09-15 10:07 | Discharge Summary ---
Date of Encounter: 09/15/17 Time of Encounter: 08:50 - Discharge Diagnosis (1) COPD (chronic obstructive pulmonary disease) Priority: Primary Status: Acute Comments: Acute exacerbation of COPD complicated by influenza A. Patient has been treated with IV steroids, IV antibiotics, aerosols, oxygen. Patient has had a frequent, hacking cough that has prevented him from resting. Phenergan with codeine improved the cough and made it able for him to sleep. Today he reports the cough is better and he is feeling better and is anxious to go home. Lungs are clear and diminished throughout. Patient does cough with deep inspiration. Cough remains nonproductive. He is not wearing oxygen, he states he does not want to try to qualify for oxygen at home. Patient states that he has inhalers at home and does not need refills. He reports that he is able to ambulate around his room without significant difficulty. Patient will be sent home with Levaquin po, Mucinex, Phenergan With Codeine, prednisone taper, and Tamiflu. Qualifiers: COPD type: unspecified COPD Qualified Code(s): J44.9 - Chronic obstructive pulmonary disease, unspecified (2) Influenza A Priority: Secondary Status: Acute Comments: Plan as above. Tamiflu doses 9 and 10 will be sent home with patient (3) Hypokalemia Priority: Secondary Status: Acute Comments: Patient was given by mouth supplementation. (4) CAD (coronary artery disease) Priority: Secondary Status: Chronic Comments: She has had no chest pain. Patient will continue his home medications at home. Follow-up with cardiology as scheduled. Qualifiers: Coronary Disease-Associated Artery/Lesion type: [place] artery [place] vs. transplanted heart: [place] heart Associated angina: without angina Qualified Code(s): I25.10 - Atherosclerotic heart disease of [place] coronary artery without angina pectoris (5) DVT prophylaxis Priority: Secondary Status: Acute Comments: Heparin subcutaneous. - Discharge Medications Prescriptions: Promethazine/Codeine [Phenergan/Codeine] 5 ml PO Q6HR PRN #30 ml PRN Reason: Cough GuaiFENesin ER [Mucinex] 600 mg PO BID PRN #20 tbbp.12hr PRN Reason: Cough Levofloxacin [Levaquin] 500 mg PO DAILY #2 tablet Oseltamivir [Tamiflu] 75 mg PO BID #2 capsule predniSONE [PredniSONE] 10 mg PO DAILY #31 tablet Home Medications: Albuterol Neb [Proventil Neb] 2.5 mg IH TID PRN 09/12/17 [History] Albuterol Sulfate [Proair Hfa] 2 puff IH Q4H PRN 09/12/17 [History] Aspirin Enteric Coated [Aspirin EC] 81 mg PO DAILY 09/12/17 [History] Clopidogrel [Plavix] 75 mg PO DAILY 09/12/17 [History] Diltiazem HCl [Diltiazem ER] 240 mg PO DAILY 09/12/17 [History] Ferrous Sulfate 325 mg PO DAILY 09/12/17 [History] Fluticasone Propionate Nasal [Flonase] 50 mcg NS DAILY 09/12/17 [History] Fluticasone/Salmeterol [Advair 250-50 Diskus] 1 each IH BID 09/12/17 [History] Isosorbide MONOnitrate [Isosorbide Mononitrate ER] 120 mg PO DAILY 09/12/17 [ History] Metformin HCl [Glucophage Xr] 750 mg PO BID 09/12/17 [History] Nitroglycerin [Nitrolingual] 1 spray TL AD PRN 09/12/17 [History] Ranitidine HCl [Zantac] 150 mg PO BID 09/12/17 [History] Tamsulosin [Flomax] 0.4 mg PO DAILY 09/12/17 [History] GuaiFENesin ER [Mucinex] 600 mg PO BID PRN #20 tbbp.12hr 09/15/17 [Rx] Levofloxacin [Levaquin] 500 mg PO DAILY #2 tablet 09/15/17 [Rx] Oseltamivir [Tamiflu] 75 mg PO BID #2 capsule 09/15/17 [Rx] Promethazine/Codeine [Phenergan/Codeine] 5 ml PO Q6HR PRN #30 ml 09/15/17 [Rx] predniSONE [PredniSONE] 10 mg PO DAILY #31 tablet 09/15/17 [Rx] Allergies/Adverse Reactions: 3 Allergy/AdvReac Type Severity Reaction Status Date / Time cephalexin AdvReac Rash Verified 09/12/17 04:05 ketorolac AdvReac Rash Verified 09/12/17 04:05 lovastatin AdvReac Rash Verified 09/12/17 04:05 niacin AdvReac Rash Verified 09/12/17 04:05 Penicillins AdvReac Rash Verified 09/12/17 04:05 prednisone AdvReac Rash Verified 09/12/17 04:05 avacor AdvReac Rash Uncoded 09/12/17 04:05 Procedures/tests Complete & Pending: Procedures Performed prior 72 hours Category Date Time Status ECG 12 lead ECG [ECG] AM 0600 Y 09/13/17 06:00 Ordered EV echocardiogram Routine Y 09/12/17 10:07 Completed Date of admission: 09/12/17 06:04 Primary care physician: Akbar Diallo MD Discharging clinician: Hailey Pearson Anticipated date of discharge: 09/15/17 - Patient Status Disposition: Home, Self-Care Condition: Good Functional capacity at discharge: independent ambulation Overall status at discharge: patient is progressing back to baseline - Discharge Instructions Follow Up With: Akbar Diallo MD [Primary Care Provider] - Additional Instructions: Please follow up with Dr. Diallo in the next 7-10 days for recheck. Return to the emergency department immediately if her symptoms become worse, or for any other problems or concerns. support services coordinator your prescriptions today. Take them as directed. Resume your normal home medications. Try to stay out of the cold as much as possible. Return to her normal activities slowly and as tolerated. Make sure the uterine plenty of fluids and stay hydrated. The Phenergan With Codeine cough syrup should only be used when necessary, perhaps at nighttime maneuver trying to sleep. Do not take the Mucinex and Phenergan With Codeine at the same time. Take her antibiotics and Tamiflu for the next 2 doses. - Diet and Activity Activity: increase activity as tolerated, resume usual activities as tolerated Diet: advance to your usual diet Hospital course: Mr. Ruby is a 71 year old male with past medical history of coronary artery disease COPD. He presented to the emergency room with COPD exacerbation. He was found to be positive for flu a while he was here. He was treated with IV Levaquin, IV Solu-Medrol, oxygen, Tamiflu, nebulizers. Patient slowly progressed and is ready for discharge. He has had a frequent, hacking cough that has disrupted his sleep. He will be given a very small amount of codeine cough syrup for when necessary use at home. Patient is not wearing oxygen today , he states he does not want to wear oxygen at home and does not want to qualify. Vital signs are stable. Labs are stable. He is ready for discharge. - Time Spent with Patient Total time spent providing and/or coordinating discharge services: Less than 30 minutes - Constitutional Vitals: Temp Pulse Resp BP Pulse Ox 97.9 F 58 17 140/64 94 09/15/17 07:47 09/15/17 07:47 09/15/17 07:47 09/15/17 07:47 09/15/17 07:47 General appearance: Present: cooperative, mild distress, A&O X 3, pleasant, no acute distress, answers questions appropriately - Head Head exam: Present: atraumatic, normal inspection, normocephalic - Eye Eye exam: Present: normal appearance, conjuntiva pink, sclera anicteric - Neck Neck exam general surgery: Present: normal inspection, supple, trachea midline. Absent: lymphadenopathy, tenderness - Respiratory Respiratory exam: Present: CTAB. Absent: accessory muscle use, rales, rhonchi, wheezes - Cardiovascular Cardiovascular exam: Present: RRR, +S1, +S2. Absent: diastolic murmur, gallop, rubs, systolic murmur - GI/Abdominal GI/Abdominal exam: Present: normal bowel sounds, soft. Absent: distended, hepatomegaly, tenderness - Extremities Exam Extremities exam: Present: normal capillary refill, normal inspection, warm, radial pulses palpable and symmetrical. Absent: calf tenderness, cyanotic, pedal edema - Neurological Exam Neurological exam: Present: alert, oriented X3, no focal deficits. Absent: facial droop, speech deficit - Skin Skin exam: Present: dry, intact, normal color, warm. Absent: rash
[2017-09-15] MEDS: Budesonide/Formoterol 80/4.5 MDI IH SCH (10:58)
== END 2017-09-15 11:40 | disposition home or self-care (01) ==
LOC: 3BNU 04:04 → EMEROO 04:04 → 3BNU 06:22
PROVIDERS: ADMIT Pediatrics; ATTEND Internal Medicine